=== PATIENT | male | born 2000 | race Caucasian/White ===

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

== ENCOUNTER → 2022-01-08 09:56 | Outpatient (BNVA) | payer MEDICAID, SELFPAY | PROVIDERS: PCP Nurse Practitioner Family; Visit Provider Orthopaedic Surgery | DX: Z98.890 Other specified postprocedural states (principal) | CPT/HCPCS: 99213; 99214 ==

== ENCOUNTER → 2022-01-20 13:16 | Outpatient (BNVA) | payer OTHER, MEDICAID, SELFPAY | PROVIDERS: PCP Nurse Practitioner Family; Visit Provider Psychiatry & Neurology Psychiatry | DX: F41.1 Generalized anxiety disorder (principal); F33.1 Major depressive disorder, recurrent, moderate; F17.200 Nicotine dependence, unspecified, uncomplicated; F11.20 Opioid dependence, uncomplicated; Z79.899 Other long term (current) drug therapy; F12.20 Cannabis dependence, uncomplicated | CPT/HCPCS: 80307; 99214 ==

== ENCOUNTER → 2022-01-27 11:55 | Outpatient (BNVA) | payer OTHER, MEDICAID, SELFPAY | PROVIDERS: PCP Nurse Practitioner Family; Visit Provider Psychiatry & Neurology Psychiatry | DX: F41.1 Generalized anxiety disorder (principal); F33.1 Major depressive disorder, recurrent, moderate; F17.200 Nicotine dependence, unspecified, uncomplicated; F12.20 Cannabis dependence, uncomplicated; Z79.899 Other long term (current) drug therapy; F11.20 Opioid dependence, uncomplicated | CPT/HCPCS: 80307; 99214 ==

== ENCOUNTER → 2022-02-24 14:56 | Outpatient (BNVA) | payer MEDICAID, SELFPAY | PROVIDERS: PCP Nurse Practitioner Family; Visit Provider Psychiatry & Neurology Psychiatry | DX: F11.20 Opioid dependence, uncomplicated (principal); Z79.899 Other long term (current) drug therapy | CPT/HCPCS: 80307 ==

== ENCOUNTER → 2022-04-22 13:54 | Outpatient (BNVA) | payer MEDICAID, SELFPAY | PROVIDERS: PCP Nurse Practitioner Family; Visit Provider Psychiatry & Neurology Psychiatry | DX: F11.20 Opioid dependence, uncomplicated (principal); Z79.899 Other long term (current) drug therapy; F12.20 Cannabis dependence, uncomplicated; F17.200 Nicotine dependence, unspecified, uncomplicated; F41.1 Generalized anxiety disorder; F33.1 Major depressive disorder, recurrent, moderate | CPT/HCPCS: 80307 ==

== ENCOUNTER 2022-06-12 08:30 | Emergency (ER) | payer MEDICAID, SELFPAY ==
[2022-06-12 08:45] VITALS: BP 192/137; PULSE 71; RESP 18; TEMP 36.4; O2SAT 97; BMI 41.8
--- NOTE | 2022-06-12 08:54 | W.ED.NAVMDI ---
HPI - Nausea/Vomiting/Diarrhea General: Chief complaint: Nausea/Vomiting/Diarrhea Stated complaint: Nausea, congestion Time Seen by Provider: 06/12/22 08:51 History of Present Illness: 22-year-old male presents with severe nausea low bit of vomiting. Patient reports that 2 days ago he was seen at [place] with similar symptoms. That his symptoms improved yesterday within this morning and came back significantly worse. He does admit to smoking marijuana but he is trying to quit patient has some mild mid abdomen discomfort/cramping. He denies any diarrhea. He does report that about a week ago everyone in his family had symptoms similar to this and he had it at that time but had seemed improved. He was given Zofran at [place]. He took 1 this morning around 630 but reports that he puked it up no reports of any other systemic complaints. Associated nausea: Yes Associated symtoms: Reports nausea Review of Systems General: Reports: 10 or more systems reviewed and unremarkable except in HPI and below GI: Reports: abdominal pain, nausea and vomiting; Denies: diarrhea or constipation PFS ED PFSH: Medical History Psychiatric care Social History (Updated 04/22/22 @ 12:58 by Car Purvis LPN) Smoking and tobacco status: current every day smoker e-cigarettes E-Cigarette Details: vaporizer device and with nicotine E-cig/vape details: 2 - 4 pods/Week Quit status (tobacco): has tried quititng Number of times tried to quit tobacco: 2 Second hand smoke exposure: No Smoking risk assessment/counseling performed?: No Alcohol intake: former Desire information about alcohol rehabilitation?: No Counseling given: No Desire information about substance/drug rehabilitation?: No Counseling given: No 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[employer] Current gender 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: Male Physical Exam Const: COMMON NORMALS: no acute distress, patient oriented x3, no limitations and alert Resp: COMMON NORMALS: normal respiratory effort, No retractions, No use of accessory muscles and clear to auscultation bilaterally AUSCULTATION: clear to auscultation bilaterally Cardio: COMMON NORMALS: regular rate and regular rhythm RATE: regular rate RHYTHM: regular rhythm GI: COMMON NORMALS: Normal to inspection, nondistended, normoactive bowel sounds present and Soft to palpation PALPATION: Yes Soft to palpation and Yes Tenderness to palpation present (GI) (Mild, mid abdomen periumbilical) : COMMON NORMALS: Yes no CVA tenderness BLADDER/KIDNEY EXAM: Yes no CVA tenderness Back/Pelvis: COMMON NORMALS: no CVA tenderness Extremity: COMMON NORMALS: full ROM, capillary refill normal and no clubbing, cyanosis or edema Neuro: COMMON NORMALS: patient oriented x3, moves all extremities and no focal motor deficits SENSORIUM/ORIENTATION: Yes alert Psych: COMMON NORMALS: mental status grossly normal, cooperative and normal affect Skin: COMMON NORMALS: no rashes or lesions noted and no wounds GENERAL SKIN EXAM: no rashes or lesions noted Course Vital Signs: Vital signs: Vital Signs Temperature 97.5 F L 06/12/22 08:45 Pulse Rate 71 06/12/22 08:45 Respiratory Rate 18 06/12/22 08:45 Blood Pressure 132/73 06/12/22 10:30 Pulse Oximetry 93 06/12/22 09:30 Oxygen Delivery Me thod 06/12/22 08:45 MDM - Nausea/Vomiting/Diarrhea Medical Decision Making Patient is feeling significantly better following treatment. He does admit to frequent marijuana use and did not realize that if he continues that it would cause his nausea vomiting to return. Patient reports he like to try to go home, not use marijuana and uses home Zofran as already been prescribed. He will return if symptoms worsen with any other concerns. Patient was stable and discharged home Lab Data : 06/12/22 09:11 06/12/22 09:11 Radiology Impressions KUB X-Ray 06/12/22 08:57 IMPRESSION: Unremarkable supine radiographic evaluation of the abdomen. Laboratory Results WBC 11.5 10^3/uL (4.5-13.0) 06/12/22 09:11 RBC 5.25 10^6/uL (4.1-5.3) 06/12/22 09:11 Hgb 15.5 g/dL (11.7-16.6) 06/12/22 09:11 Hct 45.1 % (42.0-52.0) 06/12/22 09:11 MCV 85.9 fl (80-94) 06/12/22 09:11 MCH 29.5 pg (28.0-34.0) 06/12/22 09:11 MCHC 34.4 g/dL (30.0-36.0) 06/12/22 09:11 RDW 13.3 % (12.1-15.1) 06/12/22 09:11 Plt Count 312 10^3/cmm (130-400) 06/12/22 09:11 MPV 9.1 fL (7.4-10.4) 06/12/22 09:11 Neut % (Auto) 81.1 % 06/12/22 09:11 Lymph % (Auto) 14.0 % 06/12/22 09:11 [place] % (Auto) 4.1 % 06/12/22 09:11 Eos % (Auto) 0.1 % 06/12/22 09:11 Baso % (Auto) 0.4 % 06/12/22 09:11 Neut # (Auto) 9.28 10^3/uL (1.8-8.0) H 06/12/22 09:11 Lymph # (Auto) 1.6 10^3/uL (1.5-6.5) 06/12/22 09:11 [place] # (Auto) 0.5 10^3/uL (0.2-0.9) 06/12/22 09:11 Eos # (Auto) 0.0 10^3/uL (0.0-0.8) 06/12/22 09:11 Baso # (Auto) 0.1 10^3/uL (0.0-0.1) 06/12/22 09:11 Nucleated RBC % (auto) 0 % 06/12/22 09:11 Nucleated RBCs # 0.0 /100WBC 06/12/22 09:11 Sodium 138 mmol/L (136-145) 06/12/22 09:11 Potassium 3.8 mmol/L (3.5-5.1) 06/12/22 09:11 Chloride 101 mmol/L (98-107) 06/12/22 09:11 Carbon Dioxide 23 mmol/L (22-29) 06/12/22 09:11 Anion Gap 17.8 (5-19) 06/12/22 09:11 BUN 14 mg/dL (6-20) 06/12/22 09:11 Creatinine 0.7 mg/dL (0.7-1.2) 06/12/22 09:11 GFR Calculation 143.8 mL/min (90-130) H 06/12/22 09:11 Glucose 118 mg/dL (65-115) H 06/12/22 09:11 POC Glucose 359 mg/dL (70-110) H 06/12/22 09:37 Calculated Osmolality 288 mOsm/kg (285-295) 06/12/22 09:11 Calcium 9.8 mg/dL (8.5-10.5) 06/12/22 09:11 Total Bilirubin 0.6 mg/dL (0.15-1.2) 06/12/22 09:11 AST 64 U/L (0-40) H 06/12/22 09:11 ALT 47 U/L (0-41) H 06/12/22 09:11 Alkaline Phosphatase 92 U/L (40-130) 06/12/22 09:11 Total Protein 7.8 g/dL (6.6-8.7) 06/12/22 09:11 Albumin 4.5 g/dL (3.5-5.2) 06/12/22 09:11 Globulin 3.3 g/dL (1.3-4.6) 06/12/22 09:11 Lipase 23 U/L (13-60) 06/12/22 09:11 Discharge Plan Discharge Condition: Stable Prescriptions: No Action duloxetine [Cymbalta] 30 mg capsule,delayed release(DR/EC) 30 mg PO DAILY Qty: 30 2RF trazodone 100 mg tablet 200 mg PO .HS PRN (Reason: insomnia) Qty: 60 2RF buprenorphine-naloxone 8-2 mg tablet, sublingual 1.5 tab sublingual DAILY Qty: 45 1RF Referrals: Dillard,Jessica, TANK TENDER [Primary Care Provider] - Coding Level of Care Code ED Retrimmer for Chg Fwd Exam Comprehensive
--- NOTE | 2022-06-12 08:57 | XRR_ITS ---
PROCEDURE INFORMATION: Exam: XR Abdomen Exam date and time: 06/12/2022 9:14 AM Age: 22 years old Clinical indication: Abdominal pain; Epigastric; Additional info: Nausea, vomiting TECHNIQUE: Imaging protocol: Radiologic exam of the abdomen. Views: Frontal supine view of the abdomen. 1 View. COMPARISON: CT chest abd pel w con* 02/10/2020 10:23 PM FINDINGS: Gastrointestinal tract: There is a non-obstructive bowel gas pattern. There is no abnormal dilatation of bowel loops. There is no pneumatosis or mass effect. There is no organomegaly. Intraperitoneal space: No definite free air on the supine view exam. Bones/joints: There are no acute osseous abnormalities noted. Soft tissues: No radiopaque foreign body or abnormal opacity. XR/XR KUB portable [id number] IMPRESSION: Unremarkable supine radiographic evaluation of the abdomen.
[2022-06-12 09:00] VITALS: BP 162/97; O2SAT 96
[2022-06-12] MEDS: metoclopramide 5 mg/mL SDV 2 mL 10 MG IVP (09:14)
[2022-06-12] MEDS: sodium chloride 0.9% 1,000 ML 999 ML IV (09:14)
[2022-06-12 09:18] LABS: Basophils # 0.1 10^3/uL (0.0-0.1); Basophils % 0.4 %; Eosinophils % 0.1 %; Hematocrit 45.1 % (42.0-52.0); Hemoglobin 15.5 g/dL (11.7-16.6); Lymphocytes # 1.6 10^3/uL (1.5-6.5); Mean Corpuscular HGB Conc 34.4 g/dL (30.0-36.0); Mean Corpuscular Hemoglobin 29.5 pg (28.0-34.0); Mean Corpuscular Volume 85.9 fl (80-94); Mean Platelet Volume 9.1 fL (7.4-10.4); Monocytes # 0.5 10^3/uL (0.2-0.9); Monocytes % 4.1 %; Neutrophils # 9.28 10^3/uL (1.8-8.0); Neutrophils % 81.1 %; Nucleated Red Blood Cells % 0 %; Platelet Count 312 10^3/cmm (130-400); Red Blood Count 5.25 10^6/uL (4.1-5.3); Red Cell Distribution Width 13.3 % (12.1-15.1); White Blood Count 11.5 10^3/uL (4.5-13.0)
[2022-06-12 09:30] VITALS: BP 152/110; O2SAT 93
[2022-06-12] MEDS: ondansetron 2 mg/ML SDV 2 mL 4 MG IVP (09:37)
[2022-06-12] MEDS: diphenhydrAMINE 50 mg/mL SDV 1mL 25 MG IVP (09:37)
[2022-06-12 09:41] LABS: Glucose Point of Care 359 mg/dL (70-110)
[2022-06-12 09:42] LABS: Alanine Aminotransferase 47 U/L (0-41); Albumin Level 4.5 g/dL (3.5-5.2); Alkaline Phosphatase 92 U/L (40-130); Aspartate Amino Transferase 64 U/L (0-40); Blood Urea Nitrogen 14 mg/dL (6-20); Calcium 9.8 mg/dL (8.5-10.5); Carbon Dioxide 23 mmol/L (22-29); Chloride 101 mmol/L (98-107); Globulin 3.3 g/dL (1.3-4.6); Glomerular Filtration Rate 143.8 mL/min (90-130); Glucose 118 mg/dL (65-115); Lipase 23 U/L (13-60); Osmolality Calculated 288 mOsm/kg (285-295); Sodium 138 mmol/L (136-145); Total Bilirubin 0.6 mg/dL (0.15-1.2); Total Protein 7.8 g/dL (6.6-8.7)
[2022-06-12 10:00] VITALS: BP 158/132
[2022-06-12 10:06] LABS: Anion Gap 17.8 (5-19); Potassium 3.8 mmol/L (3.5-5.1)
[2022-06-12 10:30] VITALS: BP 132/73
[2022-06-12 11:00] VITALS: BP 129/63; O2SAT 97
== END 2022-06-12 11:23 | disposition home or self-care (01) ==
PROVIDERS: Emergency Provider Student in an Organized Health Care Education/Training Program; PCP Nurse Practitioner Family
DX: R11.2 Nausea with vomiting, unspecified (principal); F17.290 Nicotine dependence, other tobacco product, uncomplicated
CPT/HCPCS: 36416; 74018; 80053; 82962; 83690; 85025; 96374; 96375; 99284; J1200; J2405; J2765; J7030

== ENCOUNTER 2023-06-29 06:07 | Emergency (ER) | payer MEDICAID, SELFPAY ==
[2023-06-29 06:11] VITALS: BP 143/87; PULSE 83; RESP 18; TEMP 36.6; O2SAT 95; BMI 35.1
--- NOTE | 2023-06-29 06:13 | XRR_ITS ---
PROCEDURE INFORMATION: Exam: XR Chest Exam date and time: 06/29/2023 6:25 AM Age: 23 years old Clinical indication: Shortness of breath; Additional info: Dyspnea/cough TECHNIQUE: Imaging protocol: Radiologic exam of the chest. Views: 1 view. COMPARISON: CT chest abd pel w con* 02/10/2020 10:23 PM FINDINGS: Lungs: Unremarkable. No consolidation. Pleural spaces: Unremarkable. No pleural effusion. No pneumothorax. Heart/Mediastinum: Unremarkable. No cardiomegaly. Bones/joints: Unremarkable. XR/XR chest 1V portable [id number] IMPRESSION: No acute findings.
--- NOTE | 2023-06-29 06:13 | ED_ITS ---
HPI - SOB/Dyspnea General: Chief Complaint: Shortness of Breath/Dyspnea Stated Complaint: sob Time Seen by Provider: 06/29/23 06:13 Source: patient Mode of arrival: ambulatory History of Present Illness: HPI Narrative: 23-year-old male presents emergency room with complaint of generally not feeling well. He first got up this morning he is feeling dizzy and lightheaded in the shower felt like he could not catch his breath. When patient went to go outside he vomited and got more short of breath and vomited again after that. By time he arrived here most of his symptoms have resolved still complaining of some sensation of chest pressure no radiation of pain into the neck arms or back. MD elicited complaint: shortness of breath and cough Severity: mild Exacerbating factors: nothing Relieving factors: nothing Associated symptoms: Reports lightheadedness, nausea and vomiting; Deny abdominal pain, chest congestion, chest pain, cough, diaphoresis, di zziness, extremity pain, fever(s), hemoptysis, myalgias, orthopnea, palpitations, paresthesias, polydipsia, polyuria, rash, sense of impending doom or syncope Review of Systems Const: Denies: fever(s), chills or diaphoresis Card: Reports: lightheadedness; Denies: chest pain, palpitations, syncope or orthopnea Resp: Denies: dyspnea, hemoptysis or chest congestion GI: Reports: nausea and vomiting; Denies: abdominal pain : Denies: dysuria, urinary frequency or urinary urgency Musc: Denies: neck pain, back pain or extremity pain Skin/Breast: Denies: rash Neuro: Denies: dizziness Endo: Denies: polyuria or polydipsia PFSH ED PFSH: Social History Smoking and tobacco/nicotine status: current every day tobacco/nicotine user e- cigarettes E-Cigarette Details: vaporizer device and with nicotine E-cig/vape details: 2 - 4 pods/Week Quit status (tobacco/nicotine): has tried quititng Number of times tried to quit tobacco: 2 Second hand smoke exposure: No Alcohol intake: former Substance/Drug Use: current Substance/Drug use frequency: few times a month 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[email or web address] Current gender identity: Male Physical Exam Const: COMMON NORMALS: no acute distress GENERAL APPEARANCE: cooperative and comfortable ORIENTATION/CONSCIOUSNESS: Yes awake, Yes oriented to person, Yes oriented to place and Yes oriented to time HENMT: COMMON NORMALS: normocephalic, atraumatic and hearing grossly normal bilaterally HEAD & SCALP: normocephalic and atraumatic Resp: COMMON NORMALS: normal respiratory effort, No retractions, No use of accessory muscles and clear to auscultation bilaterally AUSCULTATION: clear to auscultation bilaterally Cardio: COMMON NORMALS: regular rate, regular rhythm and No murmurs present (Cardio) RATE: regular rate RHYTHM: regular rhythm GI: COMMON NORMALS: Soft to palpation and No hepatosplenomegaly present AUSCULTATION: Yes normoactive bowel sounds PALPATION: Yes Soft to palpation, No Tenderness to palpation present (GI), No Guarding due to palpation present (GI) and Yes No hepatosplenomegaly present Extremity: COMMON NORMALS: normal to inspection, capillary refill normal, no clubbing, cyanosis or edema, no calf tenderness and no pedal edema Neuro: SENSORIUM/ORIENTATION: Yes oriented to person, Yes oriented to place and Yes oriented to time Skin: COMMON NORMALS: no rashes or lesions noted GENERAL SKIN EXAM: no rashes or lesions noted Course Vital Signs: Vital signs: Vital Signs Temperature 97.9 F 06/29/23 06:11 Pulse Rate 62 06/29/23 08:04 Respiratory Rate 17 06/29/23 06:21 Blood Pressure 135/82 06/29/23 08:04 Pulse Oximetry 98 06/29/23 08:04 Oxygen Delivery Me thod Room Air 06/29/23 07:14 MDM - SOB/Dyspnea Medical Decision Making Reviewed findings with the patient. Did not have symptoms suggestive of coronary artery disease or acute coronary symptoms at this time. His symptoms are pretty much completely resolved. He admits to being highly stressed lately and he feels this may have been from mild panic attack. Recommend he use albuterol as needed. Also encouraged him to follow-up with his primary care doctor within the next week recheck if he has worsening or changes symptoms. No evidence of PE pneumonia pneumothorax or dissecting aneurysm or acute coronary syndrome. Differential Diagnosis Likely congestive heart failure, community acquired pneumonia, asthma with e xacerbation and pulmonary embolism Medical Records I reviewed the patient's medical records. Lab Data I reviewed the patient's lab results. 06/29/23 06:14 06/29/23 06:14 Labs/Radiology: Radiology Impressions Chest X-Ray 06/29/23 06:13 IMPRESSION: No acute findings. Laboratory Results WBC 7.07 10^3/uL (3.29-11.43) 06/29/23 06:14 RBC 5.90 10^6/uL (3.85-5.65) H 06/29/23 06:14 Hgb 17.20 g/dL (11.27-16.99) H 06/29/23 06:14 Hct 49.1 % (37-53) 06/29/23 06:14 MCV 83.2 fl (82-101) 06/29/23 06:14 MCH 29.2 pg (27-33) 06/29/23 06:14 MCHC 35.0 g/dL (30-55) 06/29/23 06:14 RDW 12.9 % (12.1-15.1) 06/29/23 06:14 Plt Count 276 10^3/cmm (157-399) 06/29/23 06:14 MPV 9.0 fL (7.4-10.4) 06/29/23 06:14 Neut % (Auto) 52.9 % 06/29/23 06:14 Lymph % (Auto) 36.2 % 06/29/23 06:14 [place] % (Auto) 8.9 % 06/29/23 06:14 Eos % (Auto) 1.6 % 06/29/23 06:14 Baso % (Auto) 0.3 % 06/29/23 06:14 Neut # (Auto) 3.74 10^3/uL (1.8-7.7) 06/29/23 06:14 Lymph # (Auto) 2.6 10^3/uL (0.8-4.8) 06/29/23 06:14 [place] # (Auto) 0.6 10^3/uL (0.2-0.9) 06/29/23 06:14 Eos # (Auto) 0.1 10^3/uL (0.0-0.8) 06/29/23 06:14 Baso # (Auto) 0.0 10^3/uL (0.0-0.1) 06/29/23 06:14 Nucleated RBC % (auto) 0 % 06/29/23 06:14 Nucleated RBCs # 0.0 /100WBC 06/29/23 06:14 Sodium 137 mmol/L (136-145) 06/29/23 06:14 Potassium 3.5 mmol/L (3.5-5.1) 06/29/23 06:14 Chloride 96 mmol/L (98-107) L 06/29/23 06:14 Carbon Dioxide 27 mmol/L (22-29) 06/29/23 06:14 Anion Gap 17.5 (5-19) 06/29/23 06:14 BUN 11 mg/dL (6-20) 06/29/23 06:14 Creatinine 0.9 mg/dL (0.7-1.2) 06/29/23 06:14 GFR Calculation 106.5 mL/min (90-130) 06/29/23 06:14 Glucose 112 mg/dL (65-115) 06/29/23 06:14 Calculated Osmolality 284 mOsm/kg (285-295) L 06/29/23 06:14 Calcium 9.9 mg/dL (8.5-10.5) 06/29/23 06:14 Troponin T Baseline 8 ng/L (0-15) 06/29/23 06:14 All radiology interpretation(s) finalized by discharge Discharge Plan Discharge Patient Disposition: Home Clinical Impression: Dyspnea Condition: Stable Prescriptions: New albuterol sulfate 90 mcg/actuation HFA aerosol inhaler 2 inh INHALATION Q4H PRN (Reason: shortness of breath or wheezing) Qty: 18 0RF Discharge Orders: Discharge ED (Routine); Ordered 06/29/23 Ordered By: Agustin Hahn Referrals: Jessica Dillard APN [Primary Care Provider] - Discharge Diet: Usual diet Discharge Activity: Resume usual activity Patient Instructions: Opioid Safety, Pain Management Activity Restrictions/Additional Instructions: Thank you for choosing [facility] for your healthcare needs today. Please realize this is an emergency room and that we are providing you with a medical screening exam and this may not be complete and all inclusive of all the testing and or work up that you may need to determine your ailment or severity of your illness. It is very important that you follow up as instructed or that you return to the Emergency Department should you have concerns or if your condition changes or worsens in any way. Follow-up with your primary care doctor within the week. Coding Level of Care Code ED Weather Observer for Dick Santos
--- NOTE | 2023-06-29 06:15 | ECG_ITS ---
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 Measurements Intervals [place] Rate: 72 P: 74 NH: 171 QRS: 79 QRSD: 107 T: 64 QT: 414 QTc: 454 Interpretive Statements SINUS RHYTHM No previous ECG available for comparison Electronically Signed On 06-29-2023 15:11:00 ASSEMBLY MANAGER by Edilson Perez M.D. [id number]
[2023-06-29 06:21] VITALS: BP 143/87; PULSE 83; RESP 17; O2SAT 98
[2023-06-29 06:26] LABS: Basophils % 0.3 %; Eosinophils # 0.1 10^3/uL (0.0-0.8); Eosinophils % 1.6 %; Hematocrit 49.1 % (37-53); Lymphocytes # 2.6 10^3/uL (0.8-4.8); Lymphocytes % 36.2 %; Mean Corpuscular Hemoglobin 29.2 pg (27-33); Mean Corpuscular Volume 83.2 fl (82-101); Monocytes # 0.6 10^3/uL (0.2-0.9); Monocytes % 8.9 %; Neutrophils # 3.74 10^3/uL (1.8-7.7); Neutrophils % 52.9 %; Nucleated Red Blood Cells % 0 %; Platelet Count 276 10^3/cmm (157-399); Red Cell Distribution Width 12.9 % (12.1-15.1); White Blood Count 7.07 10^3/uL (3.29-11.43)
[2023-06-29 06:39] LABS: Anion Gap 17.5 (5-19); Blood Urea Nitrogen 11 mg/dL (6-20); Calcium 9.9 mg/dL (8.5-10.5); Carbon Dioxide 27 mmol/L (22-29); Chloride 96 mmol/L (98-107); Glomerular Filtration Rate 106.5 mL/min (90-130); Glucose 112 mg/dL (65-115); Osmolality Calculated 284 mOsm/kg (285-295); Potassium 3.5 mmol/L (3.5-5.1); Sodium 137 mmol/L (136-145)
[2023-06-29 07:14] VITALS: BP 135/72; PULSE 71; O2SAT 96
[2023-06-29 07:31] LABS: Troponin(5th) Baseline 8 ng/L (0-15)
[2023-06-29 08:04] VITALS: BP 135/82; PULSE 62; O2SAT 98
== END 2023-06-29 08:05 | disposition home or self-care (01) ==
PROVIDERS: Emergency Provider Family Medicine; PCP Nurse Practitioner Family
DX: R06.00 Dyspnea, unspecified (principal); F17.290 Nicotine dependence, other tobacco product, uncomplicated
CPT/HCPCS: 71045; 80048; 84484; 85025; 93005; 99285

== ENCOUNTER 2024-12-01 02:59 | Emergency (ER) | payer SELFPAY ==
[2024-12-01 03:06] VITALS: BP 140/70; PULSE 83; RESP 30; TEMP 36.8; O2SAT 97; BMI 32.1
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
[2024-12-01] MEDS: ondansetron 4 MG Tablet PO (03:15)
[2024-12-01] MEDS: morphine 4 mg/mL SDV 1 mL IVP (03:15)
[2024-12-01 03:16] LABS: Basophils # 0.1 10^3/uL (0.0-0.1); Basophils % 0.2 %; Eosinophils # 0.2 10^3/uL (0.0-0.8); Eosinophils % 0.8 %; Lymphocytes # 5.5 10^3/uL (0.8-4.8); Lymphocytes % 17.3 %; Mean Corpuscular HGB Conc 34.1 g/dL (30-55); Mean Corpuscular Hemoglobin 30.5 pg (27-33); Mean Corpuscular Volume 89.6 fl (82-101); Mean Platelet Volume 9.1 fL (7.4-10.4); Monocytes # 1.5 10^3/uL (0.2-0.9); Monocytes % 4.7 %; Neutrophils # 24.16 10^3/uL (1.8-7.7); Neutrophils % 75.7 %; Nucleated Red Blood Cells % 0 %; Platelet Count 281 10^3/cmm (157-399); Red Blood Count 4.91 10^6/uL (3.85-5.65); Red Cell Distribution Width 13.1 % (12.1-15.1)
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
[2024-12-01 03:39] LABS: Alcohol Level 90 mg/dL (0-10); Anion Gap 17.6 (5-19); Blood Urea Nitrogen 15 mg/dL (6-20); Calcium 8.5 mg/dL (8.5-10.5); Carbon Dioxide 21 mmol/L (22-29); Chloride 106 mmol/L (98-107); Creatinine Clr Calc Pharmacy 178.0456; Glomerular Filtration Rate 120.9 mL/min (90-130); Glucose 135 mg/dL (65-115); Osmolality Calculated 295 mOsm/kg (285-295); Potassium 3.6 mmol/L (3.5-5.1); Sodium 141 mmol/L (136-145)
[2024-12-01 03:49] VITALS: PULSE 75; O2SAT 96
[2024-12-01] MEDS: iohexol 350 mg/mL 500 mL Btl (per mL) IV (03:55)
[2024-12-01] MEDS: sodium chloride 0.9% 1,000 ML 999 ML IV (04:11)
[2024-12-01 04:18] LABS: Lactic Sepsis W/Reflex 3.2 mmol/L (0.5-2.2)
[2024-12-01] MEDS: HYDROmorphone 0.5 MG/0.5 ML INJ IVP (04:25)
[2024-12-01 04:28] VITALS: PULSE 78; O2SAT 95
--- NOTE | 2024-12-01 04:50 | PC.NURSE ---
Report was called to Audie Sung RN at [facility]. All questions and concerns were addressed at time of report.
[2024-12-01] MEDS: HYDROmorphone 0.5 MG/0.5 ML INJ 1 MG IVP (05:35)
[2024-12-01 05:42] VITALS: BP 158/76; PULSE 69; O2SAT 96
[2024-12-01 05:49] LABS: Reflex Lactate Order REFLEX LACTIC ORDERD
[2024-12-01 05:54] VITALS: BP 158/76; PULSE 69; O2SAT 96
--- NOTE | 2024-12-01 05:55 | PC.NURSE ---
Charge nurse DONAVON Petty pulled 1 instead of the 2 vials of Dilaudid ordered for patient. At time of medication administration, only 1 vial of Dilaudid was administered by this nurse; patient not in significant pain or distress at time of assessment.
== END 2024-12-01 06:00 | disposition short-term general hospital (02) ==
PROVIDERS: Emergency Provider Emergency Medicine; PCP Nurse Practitioner Family
DX: S22.41XA Multiple fractures of ribs, right side, initial encounter for closed fracture (principal); J94.2 Hemothorax; V89.2XXA Person injured in unspecified motor-vehicle accident, traffic, initial encounter; S12.500A Unspecified displaced fracture of sixth cervical vertebra, initial encounter for closed fracture; S12.600A Unspecified displaced fracture of seventh cervical vertebra, initial encounter for closed fracture; S42.101A Fracture of unspecified part of scapula, right shoulder, initial encounter for closed fracture; F17.290 Nicotine dependence, other tobacco product, uncomplicated
CPT/HCPCS: 70450; 70486; 71260; 72125; 74177; 80048; 80307; 83605; 85025; 96374; 96375; 96376; 99285; J1171; J2270; J7030; Q0162

== ENCOUNTER → 2024-12-25 12:50 | Outpatient (BNVA) | payer SELFPAY | PROVIDERS: PCP Nurse Practitioner Family; Visit Provider Nurse Practitioner Family | DX: Z98.890 Other specified postprocedural states (principal) | CPT/HCPCS: 80053; 85025 ==

== ENCOUNTER 2025-02-17 17:55 | Emergency (ER) | payer MEDICAID, SELFPAY ==
[2025-02-17 17:58] VITALS: BP 142/81; PULSE 71; RESP 18; TEMP 36.7; O2SAT 98; BMI 32.3
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
--- NOTE | 2025-02-17 18:59 | ECG_ITS ---
[facility] Test Date: 2025-02-17 Pat Name: Adarsh Pimentel Department: Room: Gender: Male Affirmative Action Officer: : 2000 Requested By: Melania Biswas Order Number: [id number] Reading MD: Measurements Intervals [place] Rate: 61 P: 42 NV: 174 QRS: 52 QRSD: 111 T: 48 QT: 464 QTc: 469 Interpretive Statements SINUS RHYTHM MODERATE INTRAVENTRICULAR CONDUCTION DELAY [110+ ms QRS DURATION] PROLONGED QT INTERVAL Compared to ECG 06/29/2023 06:15:54 Intraventricular conduction delay now present Prolonged QT interval now present [email or web address]
[2025-02-17 19:43] LABS: Hematocrit 42.2 % (37-53); Hemoglobin 14.30 g/dL (11.27-16.99); Mean Corpuscular HGB Conc 33.9 g/dL (30-55); Mean Corpuscular Hemoglobin 29.4 pg (27-33); Mean Corpuscular Volume 86.7 fl (82-101); Nucleated Red Blood Cells % 0 %; Platelet Count 198 10^3/cmm (157-399); Red Blood Count 4.87 10^6/uL (3.85-5.65); White Blood Count 9.31 10^3/uL (3.29-11.43)
[2025-02-17 19:45] LABS: Glucose Urine UA Negative (Normal); Nitrate Urine Negative (Negative); Specific Gravity, Urine 1.020 (1.005-1.030)
[2025-02-17 19:50] LABS: Add Urine Microscopic? YES
[2025-02-17 19:53] LABS: PCP Screen Urine Negative (Negative)
[2025-02-17 20:07] LABS: Alanine Aminotransferase 27 U/L (0-41); Albumin Level 4.1 g/dL (3.5-5.2); Alkaline Phosphatase 79 U/L (40-130); Anion Gap 16.1 (5-19); Aspartate Amino Transferase 21 U/L (0-40); Blood Urea Nitrogen 15 mg/dL (6-20); Calcium 8.7 mg/dL (8.5-10.5); Carbon Dioxide 26 mmol/L (22-29); Chloride 102 mmol/L (98-107); Creatinine Clr Calc Pharmacy 198.1257; Globulin 2.6 g/dL (1.3-4.6); Glucose 91 mg/dL (65-115); Osmolality Calculated 290 mOsm/kg (285-295); Potassium 4.1 mmol/L (3.5-5.1); Sodium 140 mmol/L (136-145); Thyroid Stimulating Hormone 0.93 uIU/mL (0.27-4.20); Total Protein 6.7 g/dL (6.6-8.7)
[2025-02-17 20:08] LABS: Acetaminophen < 5.0 ug/mL (10-30); Alcohol Level < 10 mg/dL (0-10); Salicylate < 0.3 mg/dL (3-10)
[2025-02-17 20:12] LABS: Respiratory Syncytial Virus Ce NEGATIVE (Negative); SARS-CoV-2 PCR NEGATIVE (Negative)
[2025-02-18 06:59] VITALS: BP 123/73; PULSE 78; RESP 16; O2SAT 97
== END 2025-02-18 07:05 | disposition home or self-care (01) ==
PROVIDERS: Emergency Provider Physician Assistant; PCP Nurse Practitioner Family
DX: F32.A Depression, unspecified (principal); Z87.891 Personal history of nicotine dependence; Z11.52 Encounter for screening for COVID-19
CPT/HCPCS: 36415; 80053; 80306; 80307; 81001; 84443; 85025; 87637; 93005; 93010; 99284; J9999

== ENCOUNTER → 2025-05-02 14:48 | Outpatient (BNVA) | payer MEDICAID, SELFPAY | PROVIDERS: PCP Nurse Practitioner Family; Visit Provider Nurse Practitioner Family | DX: R30.0 Dysuria (principal); N50.819 Testicular pain, unspecified | CPT/HCPCS: 81000; 87491; 87591; 87661 ==